=== PATIENT | male | born 1990 ===

== ENCOUNTER 2017-07-17 18:09 | Emergency (ER) | payer SELFPAY ==
--- NOTE | 2017-07-17 19:50 | Emergency Department Record ---
History of Present Illness - General Chief complaint: Jaw Swelling Stated complaint: RT JAW SWELLING/PAIN Time Seen by Provider: 07/17/17 19:48 Source: Patient Mode of Arrival: Ambulatory Limitations: No limitations - History of Present Illness Initial comments: 26 yo male presents to ED with a 2-day history of right lower jaw swelling and dental pain. Patient reports numerous dental caries, reports the tooth resulting in his pain symptoms has been broken for about 1 year. Patient denies recent dental trauma, injury, fevers, chills, or recent illness. Patient reports that he has an appointment with his dentist next week scheduled as well. MD complaint: Tooth pain Onset/Timin -: Days(s) Location: Tooth # Severity: Moderate Severity scale (1-10): 8 Quality: Aching Consistency: Constant Improves with: None Worsens with: None Context- Dental: Poor dental care Associated Symptoms: Gum swelling, Toothache - Related Data Previous Rx's Medication Instructions Recorded Clindamycin HCl [Cleocin HCl] 300 mg PO QID #40 capsule 07/17/17 Ibuprofen [Motrin] 800 mg PO Q6H PRN #30 tab 07/17/17 Prednisone [Prednisone 20Mg] 20 mg PO TID #15 tab 07/17/17 Allergies Allergy/AdvReac Type Severity Reaction Status Date / Time No Known Allergies Allergy Unverified 03/01/17 17:52 Travel Screening - Travel/Exposure Within Last 30 Days Have you traveled within the last 30 days?: No Review of Systems Constitutional: Denies: Chills, Fever, Malaise, Night sweats Eyes: Denies: Eye discharge, Eye pain ENT: Reports: Dental pain. Denies: Congestion, Ear pain, Epistaxis Respiratory: Denies: Cough, Dyspnea Cardiovascular: Denies: Chest pain, Dyspnea on exertion Endocrine: Denies: Fatigue, Heat or cold intolerance Gastrointestinal: Denies: Abdominal pain, Nausea, Vomiting Genitourinary: Denies: Incontinence, Retention Musculoskeletal: Denies: Arthralgia, Back pain, Gout, Joint swelling Skin: Denies: Bruising, Change in color Neurological: Denies: Abnormal gait, Confusion, Headache, Numbness, Tingling Psychiatric: Denies: Anxiety Hematological/Lymphatic: Denies: Anemia, Blood Clots Past Medical History - SOCIAL HISTORY Smoking Status: Current every day smoker Alcohol Use: None Drug Use: None - RESPIRATORY Hx Respiratory Disorders: No - CARDIOVASCULAR Hx Cardio Disorders: No - NEURO Hx Neuro Disorders: No - GI Hx GI Disorders: No - Hx Genitourinary Disorders: No - ENDOCRINE Hx Endocrine Disorders: No - MUSCULOSKELETAL Hx Musculoskeletal Disorders: No - PSYCH Hx Psych Problems: No - HEMATOLOGY/ONCOLOGY Hx Hematology/Oncology Disorders: No Family Medical History Any Significant Family History?: No Physical Exam - General General Appearance: Alert, Oriented x3, Cooperative, Mild distress Limitations: No limitations - Head Head exam: Atraumatic, Other (STS to the right lateral mandible is present) Head exam detail: negative: Abrasion, Contusion, Matthews's sign, General tenderness, Hematoma, Laceration Image of Face/Head: 1 - STS present, no erythema, induration, or abscess present. - Eye Eye exam: Normal appearance. negative: Conjunctival injection, Periorbital swelling, Periorbital tenderness, Scleral icterus - ENT Ear exam: negative: Auricular hematoma, Auricular trauma Nasal Exam: negative: Active bleeding, Discharge, Dried blood, Foreign body Mouth exam: negative: Drooling, Laceration, Muffled voice, Tongue elevation Teeth exam: Dental caries, Dental tenderness #, Fractured tooth # Throat exam: negative: Tonsillar erythema, Tonsillomegaly, R peritonsillar mass , L peritonsillar mass Image of Mouth/Teeth: 1 - Dental tenderness, caries, no gingival abscess is present on examination. - Neck Neck exam: Normal inspection. negative: Meningismus, Tenderness, Thyromegaly - Respiratory Respiratory exam: Normal lung sounds bilaterally. negative: Respiratory distress, Rhonchi, Stridor, Wheezes - Cardiovascular Cardiovascular Exam: Regular rate, Normal rhythm, Normal heart sounds - GI/Abdominal GI/Abdominal exam: Soft. negative: Distended, Rebound, Rigid, Tenderness - Rectal Rectal exam: Deferred - exam: Deferred - Extremities Extremities exam: Normal inspection. negative: Calf tenderness, Pedal edema, Tenderness - Back Back exam: Denies: CVA tenderness (R), CVA tenderness (L) - Neurological Neurological exam: Alert, Normal gait, Oriented X3 - Psychiatric Psychiatric exam: Normal affect, Normal mood - Skin Skin exam: Normal color. negative: Abrasion Type of lesion: negative: abrasion Course Vital Signs 07/17/17 19:29 Temperature 98.5 F Pulse Rate [ 66 Pulse Ox Probe] Respiratory 18 Rate Blood Pressure 150/86 [Left Arm] Pulse Ox 100 - Reevaluation(s) Reevaluation #1: 07/17/17 19:55 Patient's symptoms appear c/w dental caries/dental abscess. Will treat with Clindamycin and Prednisone for his facial swelling symptoms with instructions to return to ED for any worsening of his symptoms, and to follow-up with his dentist as scheduled next Monday. Disposition Disposition: Discharge Clinical Impression: Dental caries Disposition: Home, Self-Care Condition: (2) Stable Instructions: Dental Abscess (ED) Additional Instructions: Return to ED if your symptoms worsen or if you have any concerns. Clindamycin and Prednisone as directed. Follow-up with your dentist in 1 week as scheduled. Prescriptions: Clindamycin HCl [Cleocin HCl] 300 mg PO QID #40 capsule Ibuprofen [Motrin] 800 mg PO Q6H PRN #30 tab PRN Reason: Pain - Moderate (5-7) Prednisone [Prednisone 20Mg] 20 mg PO TID #15 tab Forms: Patient Portal Access Time of Disposition: 19:50 Quality - Quality Measures Quality Measures: N/A - Blood Pressure Screening Does Patient Have Any of the Following: No Blood Pressure Classification: Pre-Hypertensive BP Reading Systolic Measurement: 150 Diastolic Measurement: 86 Screening for High Blood Pressure: < Pre-Hypertensive BP, F/U Documented > [ G8950] Pre-Hypertensive Follow-up Interventions: Referral to alternative/primary care provider.
== END 2017-07-17 20:02 | disposition home or self-care (01) ==
LOC: ER 18:09
DX: K02.9 Dental caries, unspecified (principal)
CPT/HCPCS: 99282

== ENCOUNTER 2018-08-16 20:00 | Emergency (ER) | payer SELFPAY ==
[2018-08-16] MEDS ORDERED: 0.9 % SODIUM CHLORIDE 1,000 ML BAG IV ONE (20:06)
[2018-08-16] MEDS ORDERED: KETOROLAC 30 MG/ML VIAL IVP ONE ×2 (20:06→21:25)
[2018-08-16] MEDS ORDERED: ONDANSETRON HCL IV 4 MG/2 ML VIAL IVP ONE (20:06)
[2018-08-16 20:07] LABS: URINE APPEARANCE SL CLOUDY; URINE BILIRUBIN SMALL (NEGATIVE); URINE BLOOD LARGE (NEGATIVE); URINE COLOR RED; URINE GLUCOSE (UA) NEGATIVE (NEGATIVE); URINE KETONE TRACE (NEGATIVE)
--- NOTE | 2018-08-16 20:10 | Emergency Department Record ---
History of Present Illness - General Chief complaint: Male Urogenital Problem Stated complaint: BLOOD IN URIN AND LOWER BACK PAIN Time Seen by Provider: 08/16/18 20:02 Source: Patient Mode of Arrival: Ambulatory Limitations: No limitations - History of Present Illness Initial comments: 27 yo male presents with left flank pain the last few hours. He has noted some blood tinged urine the last 2 days. No fevers. The pain became intense the last few hours with nausea. No rash. No fevers. No chills. No history of the same in the past. No current medications. No history of renal stones or history. No allergies to medications. MD Complaint: Dysuria, Other (Left flank Pain) -: Hour(s) (2) Location: Left flank Radiation: L flank Severity: Severe Quality: Aching Consistency: Constant Improves with: None Worsens with: None Other Reports: Blood in urine - Related Data Previous Rx's Medication Instructions Recorded Hydrocodone/Acetaminophen [[place] 1 tab PO Q6H PRN #12 tab 08/16/18 5mg/325mg] Allergies Allergy/AdvReac Type Severity Reaction Status Date / Time No Known Drug Allergies Allergy Verified 08/16/18 20:13 Review of Systems Constitutional: Denies: Chills, Fever, Weakness Eyes: Denies: Eye discharge ENT: Denies: Congestion, Throat pain Respiratory: Denies: Cough, Dyspnea Cardiovascular: Denies: Chest pain, Syncope Endocrine: Denies: Fatigue Gastrointestinal: Reports: Abdominal pain (Left flank), Nausea, Vomiting. Denies: Diarrhea Genitourinary: Reports: Hematuria. Denies: Dysuria, Incontinence, Retention, Testicular pain, Testicular mass, Urgency Musculoskeletal: Reports: As per HPI, Back pain. Denies: Arthralgia Skin: Denies: Bruising, Change in color, Rash Neurological: Denies: Headache, Numbness, Weakness Psychiatric: Denies: Anxiety Hematological/Lymphatic: Denies: Blood Clots, Easy bleeding, Easy bruising, Swollen glands Past Medical History - SOCIAL HISTORY Smoking Status: Current every day smoker Drug Use: None - RESPIRATORY Hx Respiratory Disorders: No - CARDIOVASCULAR Hx Cardio Disorders: No - NEURO Hx Neuro Disorders: No - GI Hx GI Disorders: No - Hx Genitourinary Disorders: No - ENDOCRINE Hx Endocrine Disorders: No - MUSCULOSKELETAL Hx Musculoskeletal Disorders: No - PSYCH Hx Psych Problems: No - HEMATOLOGY/ONCOLOGY Hx Hematology/Oncology Disorders: No Physical Exam - General General Appearance: Alert, Oriented x3, Cooperative, No acute distress Limitations: No limitations - Head Head exam: Normal inspection - Eye Eye exam: Normal appearance. negative: Conjunctival injection - ENT ENT exam: Normal exam Ear exam: Normal external inspection Nasal Exam: Normal inspection Mouth exam: Normal external inspection - Neck Neck exam: Normal inspection - Respiratory Respiratory exam: Normal lung sounds bilaterally. negative: Respiratory distress - Cardiovascular Cardiovascular Exam: Regular rate, Normal rhythm, Normal heart sounds - GI/Abdominal GI/Abdominal exam: Soft. negative: Distended, Guarding, Rebound, Rigid, Tenderness - Rectal Rectal exam: Deferred - exam: Deferred - Extremities Extremities exam: Normal inspection - Back Back exam: Reports: CVA tenderness (L), Full ROM. Denies: CVA tenderness (R), Muscle spasm, Paraspinal tenderness, Vertebral tenderness - Neurological Neurological exam: Alert, Oriented X3 - Psychiatric Psychiatric exam: Normal affect, Normal mood - Skin Skin exam: Dry, Intact, Normal color, Warm Course - Reevaluation(s) Reevaluation #1: 08/16/18 20:28 UA reviewed. No acute sing of infection. 08/16/18 20:38 No acute changes on the CMP 08/16/18 20:42 The pain control is much improved at this time. Waiting for CT report. 08/16/18 21:03 CBC reviewed. No acute changes. 08/16/18 21:[address] demonstrated 2.5mm distal left renal stone. We discussed the labs, CT, reasons to return, home care with pain medication, strainer. 08/16/18 21:31 Opioid Start Talking: MAPS completed The patient was prescribed a controlled substance. The Opioid Start Talking Form was reviewed with the patient. The topics of abuse, addiction, overdose, multiple medications, disposal, and illegal distribution 08/16/18 21:57 Some pain returning at this time. Morphine and Toradol given. Will continue to monitor. 08/16/18 22:21 The pain is controlled. We discussed that it will come and go some. He is ready for DC Medical Decision Making - Lab Data Result diagrams: 08/16/18 20:17 08/16/18 20:17 Disposition Disposition: Discharge Clinical Impression: Renal colic on left side Disposition: Home, Self-Care Condition: (1) Good Instructions: Renal Colic (ED) Additional Instructions: Call your doctor for the next available follow up appointment Return to the ER for a recheck if worse, any new concerns or questions, uncontrolled pain, vomiting or fever Take the prescriptions provided as directed Review this ER visit and the tests performed with your family doctor Prescriptions: Hydrocodone/Acetaminophen [[place] 5mg/325mg] 1 tab PO Q6H PRN #12 tab PRN Reason: Pain - General Referrals: SANJUANA MIRANDA [MEDICAL DOCTOR] - Forms: Patient Portal Access Time of Disposition: 21:31 Quality - Quality Measures Quality Measures: N/A - Blood Pressure Screening Does Patient Have Any of the Following: No Blood Pressure Classification: Pre-Hypertensive BP Reading Systolic Measurement: 139 Diastolic Measurement: 85 Screening for High Blood Pressure: < Pre-Hypertensive BP, F/U Documented > [ G8950] Pre-Hypertensive Follow-up Interventions: Referral to alternative/primary care provider.
[2018-08-16 20:11] LABS: URINE EPITHELIAL CELLS 0 - 2 (FEW); URINE WBC 0 - 2 (0-2/hpf)
[2018-08-16] MEDS ORDERED: MORPHINE SULFATE 10 MG/ML VIAL IVP ONE (20:11)
[2018-08-16 20:12] LABS: URINE BACTERIA NONE SEEN
[2018-08-16 20:29] LABS: BLOOD UREA NITROGEN 10 mg/dL (6-20); CREATININE 1.2 mg/dL (0.7-1.2); EST GLOMERULAR FILTRATION RATE > 60 mL/min
[2018-08-16 20:30] LABS: TOTAL PROTEIN 6.7 g/dL (6.6-8.7)
[2018-08-16 20:30] LABS: URINE NITRITE POSITIVE (NEGATIVE)
[2018-08-16 20:31] LABS: URINE LEUKOCYTE ESTERASE TRACE (NEGATIVE)
[2018-08-16 20:32] LABS: GLUCOSE,RANDOM 90 mg/dL (74-109)
[2018-08-16 20:35] LABS: ALB/GLOB RATIO 1.9 (1.1-1.8); ALBUMIN 4.4 g/dL (4.0-5.0); ALKALINE PHOSPHATASE 65 U/L (40-129); ALT/SGPT 10 U/L (<41); AST/SGOT 17 U/L (10.0-50.0)
[2018-08-16 21:01] LABS: HEMOGLOBIN 16.1 gm/dl (14.0-18.0); RED BLOOD COUNT 5.54 M/uL (4.40-5.70); WHITE BLOOD COUNT W/O DIFF 13.4 K/uL (4.2-12.2)
[2018-08-16 21:02] LABS: EOS % 1.8 % (0-6); GRAN % 50.1 % (47-80); HEMATOCRIT 48.3 % (42.0-52.0); LYMPH % 40.9 % (16-45); MEAN CELL VOLUME 87.2 fl (81-97); MEAN CORPUSCULAR HEMOGLOBIN 29.1 pg (27-33); MEAN CORPUSCULAR HGB CONC 33.3 g/dl (32-36); MEAN PLATELET VOLUME 9.4 fl (7.4-10.4); MONO % 6.2 % (0-9); PLATELET COUNT 348 K/uL (130-400); RED CELL DISTRIBUTION WIDTH 14.6 % (11.5-14.5)
[2018-08-16] MEDS ORDERED: TAMSULOSIN HCL 0.4 MG CAP.ER.24H PO ONE (21:04)
[2018-08-16] MEDS ORDERED: ONDANSETRON 4 MG ODT TABLET SL ONE (21:27)
[2018-08-16] MEDS ORDERED: HYDROCODONE/APAP 5/325MG TABLET PO ONE (21:27)
--- NOTE | 2018-08-18 13:53 | CT SCAN REPORT ---
DATE: 08/16/2018. EXAM: CT SCAN OF THE ABDOMEN AND PELVIS. HISTORY: THE PATIENT HAS LEFT LOWER BACK PAIN. TECHNIQUE: Serial axial CT scan of the abdomen and pelvis was performed at 2.5- mm intervals from the dome of the diaphragm down to the pubic symphysis without the use of intravenous or oral contrast. COMPARISON: No comparison CTs are available. FINDINGS: The lung windows and lung bases demonstrate no CT evidence of a focal infiltrate or pleural effusion. The visualized heart size and contour is within normal limits. The liver, spleen, pancreas, adrenal glands, and gallbladder are unremarkable. Mild left-sided hydroureter is noted. There is mild left-sided hydronephrosis with mild left perinephric fat stranding. There is a partially obstructing 2.5 mm calculus within the distal left ureter. The right kidney is unremarkable. The contour and caliber of the noncontrasted abdominal aorta is within normal limits. There is no CT evidence of retroperitoneal, pelvic, or inguinal lymphadenopathy. The bowel gas pattern is nonspecific and nonobstructive. There is no CT evidence of free intraperitoneal fluid or free intraperitoneal air. The appendix is visualized, and there is no CT evidence of appendicitis. The urinary bladder is decompressed. The bone windows demonstrate no CT evidence of a fracture or dislocation of the visualized osseous structures. IMPRESSION: A 2.5 MM, PARTIALLY OBSTRUCTING CALCULUS IS NOTED IN THE DISTAL LEFT URETER CREATING MILD LEFT-SIDED HYDRONEPHROSIS AND HYDROURETER. JOB NUMBER: [id number] MTDD
== END 2018-08-16 22:29 | disposition home or self-care (01) ==
LOC: ER 20:00
DX: N20.0 Calculus of kidney (principal); R30.0 Dysuria; R31.0 Gross hematuria; R11.0 Nausea; F17.210 Nicotine dependence, cigarettes, uncomplicated
CPT/HCPCS: 99284 ×2; 96374; 96375; 85025; 80053; 81001; 74176; J1885; J2405; J2270; J7030

== ENCOUNTER 2018-08-19 10:36 | Emergency (ER) | payer SELFPAY ==
[2018-08-19] MEDS ORDERED: KETOROLAC 30 MG/ML VIAL IVP ONE (10:47)
[2018-08-19] MEDS ORDERED: 0.9 % SODIUM CHLORIDE 1,000 ML BAG IV ONE ×2 (10:47→11:24)
[2018-08-19] MEDS ORDERED: ONDANSETRON HCL IV 4 MG/2 ML VIAL IVP ONE (10:47)
--- NOTE | 2018-08-19 10:50 | Emergency Department Record ---
History of Present Illness - General Chief complaint: Flank Pain Stated complaint: KIDNEY STONE Time Seen by Provider: 08/19/18 10:37 Source: Patient Mode of Arrival: Ambulatory Limitations: No limitations - History of Present Illness Initial comments: The patient was diagnosed with a L lower ureter stone 3 days ago in the ER. It measured 2.5 mm and was quite distal in the ureter. He has been taking his pain medicines but this AM the pain worsened and he developed vomiting. There has been no fever, chills, or back pain. MD Complaint: Other Onset/Timin -: Days(s) Location: Left flank Severity scale (1-10): >10 Quality: Sharp, Stabbing Consistency: Constant - Related Data Previous Rx's Medication Instructions Recorded Hydrocodone/Acetaminophen [[place] 1 tab PO Q6H PRN #12 tab 08/16/18 5mg/325mg] Hydrocodone/Acetaminophen [[place] 1 - 2 each PO QID #12 tablet 08/19/18 5-325 Tablet] Ondansetron [Zofran Odt] 4 mg SL .Q4-6H PRN #12 tab.rapdis 08/19/18 Tamsulosin HCl [Flomax] 0.4 mg PO DAILY #7 cap.er.24h 08/19/18 Allergies Allergy/AdvReac Type Severity Reaction Status Date / Time No Known Drug Allergies Allergy Verified 08/16/18 20:13 Travel Screening - Travel/Exposure Within Last 30 Days Have you traveled within the last 30 days?: No - Travel/Exposure Within Last Year Have you traveled outside the [place] in the last year?: No - Additonal Travel Details Have you been exposed to anyone with a communicable illness?: No - Travel Symptoms Symptom Screening: None Review of Systems Constitutional: Denies: Chills, Fever Eyes: Denies: Eye discharge ENT: Denies: Congestion Respiratory: Denies: Cough, Dyspnea Past Medical History - SOCIAL HISTORY Smoking Status: Current every day smoker Alcohol Use: None Drug Use: Occasional Drug Use Detail:: Marijuana - RESPIRATORY Hx Respiratory Disorders: No - CARDIOVASCULAR Hx Cardio Disorders: No - NEURO Hx Neuro Disorders: No - GI Hx GI Disorders: No - Hx Genitourinary Disorders: Yes Hx Kidney Stones: Yes - ENDOCRINE Hx Endocrine Disorders: No - MUSCULOSKELETAL Hx Musculoskeletal Disorders: No - PSYCH Hx Psych Problems: No - HEMATOLOGY/ONCOLOGY Hx Hematology/Oncology Disorders: No Family Medical History Any Significant Family History?: No Hx Cancer: Grandparents Hx Diabetes: Father Physical Exam - General General Appearance: Alert, Oriented x3, Cooperative, Mild distress (due to AP.) - Head Head exam: Atraumatic, Normocephalic, Normal inspection - Eye Eye exam: Normal appearance, PERRL - Neck Neck exam: Normal inspection, Full ROM. negative: Tenderness - Respiratory Respiratory exam: Normal lung sounds bilaterally. negative: Respiratory distress - Cardiovascular Cardiovascular Exam: Regular rate, Normal rhythm, Normal heart sounds - GI/Abdominal GI/Abdominal exam: Soft, Normal bowel sounds, Tenderness (There is mild LLQ tenderness to palpation). negative: Rebound, Rigid - Extremities Extremities exam: Normal inspection, Full ROM, Normal capillary refill. negative: Tenderness Course Vital Signs 08/19/18 10:38 Temperature 98.2 F Pulse Rate 65 Respiratory 20 Rate Blood Pressure 132/84 Pulse Ox 99 - Reevaluation(s) Reevaluation #1: The patient is doing better at this time. His pain is much improved and he is resting comfortably. 08/19/18 11:52 Reevaluation #2: The patient is doing much better at this time. He was sleeping when I walked into the room. The pain is much improved. I did discus the case with Dr. Mark and he should be able to see the patient in the office tomorrow. If he worsens prior to that he would like the patient to go to [facility] for further treatment. 08/19/18 12:21 Reevaluation #3: The patient is doing a lot better now. His pain is well controlled and he is drinking and urinating normally with no nausea or vomiting. I did explain the plan to him again. He is to see Dr. Mark tomorrow in the office. If he is unable to see him tomorrow he should return here to the ER for recheck and repeat lab work. If his symptoms worsen today he is to proceed to [facility] for definite treatment. 08/19/18 13:34 Medical Decision Making - Data Complexity MDM Data: Labs Ordered and/or Reviewed, X-Ray Ordered and/or Reviewed (CT from 08/16 reviewed.) - Lab Data Result diagrams: 08/19/18 10:50 08/19/18 12:44 Disposition Disposition: Discharge Clinical Impression: Renal colic on left side Disposition: Home, Self-Care Condition: (2) Stable Instructions: Flank Pain (ED) Additional Instructions: Please drink plenty of fluids and use the [place], Flomax and Zofran as directed. Please see Dr. Mark tomorrow and call for an appointment. Please proceed to [facility] for any worsening symptoms today like worsening pain, fever, or vomiting. Prescriptions: Hydrocodone/Acetaminophen [[place] 5-325 Tablet] 1 - 2 each PO QID #12 tablet Ondansetron [Zofran Odt] 4 mg SL .Q4-6H PRN #12 tab.rapdis PRN Reason: Nausea Tamsulosin HCl [Flomax] 0.4 mg PO DAILY #7 cap.er.24h Referrals: REFUGIO MARK M.D. [MEDICAL DOCTOR] - Forms: Patient Portal Access Time of Disposition: 13:37 Quality - Quality Measures Quality Measures: N/A - Blood Pressure Screening View Details: Yes Does Patient Have Any of the Following: No Blood Pressure Classification: Pre-Hypertensive BP Reading Systolic Measurement: 121 Diastolic Measurement: 60 Screening for High Blood Pressure: < Pre-Hypertensive BP, F/U Documented > [ G8950] Pre-Hypertensive Follow-up Interventions: Referral to alternative/primary care provider.
[2018-08-19 11:02] LABS: BASO % 0.4 % (0-6); EOS % 0.6 % (0-6); GRAN % 76.2 % (47-80); HEMATOCRIT 42.5 % (42.0-52.0); HEMOGLOBIN 14.1 gm/dl (14.0-18.0); LYMPH % 12.9 % (16-45); MEAN CELL VOLUME 86.9 fl (81-97); MEAN CORPUSCULAR HEMOGLOBIN 28.8 pg (27-33); MEAN CORPUSCULAR HGB CONC 33.2 g/dl (32-36); MEAN PLATELET VOLUME 9.8 fl (7.4-10.4); MONO % 9.9 % (0-9); PLATELET COUNT 283 K/uL (130-400); RED BLOOD COUNT 4.89 M/uL (4.40-5.70); RED CELL DISTRIBUTION WIDTH 14.4 % (11.5-14.5); WHITE BLOOD COUNT W/O DIFF 19.1 K/uL (4.2-12.2)
[2018-08-19 11:12] LABS: CREATININE 1.6 mg/dL (0.7-1.2)
[2018-08-19] MEDS ORDERED: HYDROMORPHONE HCL 2 MG/ML VIAL IVP ONE ×2 (11:24→13:16)
[2018-08-19 11:33] LABS: URINE APPEARANCE CLEAR; URINE BILIRUBIN NEGATIVE (NEGATIVE); URINE BLOOD SMALL (NEGATIVE); URINE COLOR YELLOW; URINE GLUCOSE (UA) NEGATIVE (NEGATIVE); URINE KETONE 40 mg/dL (NEGATIVE); URINE LEUKOCYTE ESTERASE NEGATIVE (NEGATIVE); URINE NITRITE NEGATIVE (NEGATIVE); URINE PROTEIN NEGATIVE (NEGATIVE); URINE UROBILINOGEN 0.2 E.U./dL (0.20 - 1.00)
[2018-08-19 11:44] LABS: URINE BACTERIA FEW; URINE EPITHELIAL CELLS 0 - 2 (FEW); URINE WBC 0 - 2 (0-2/hpf)
[2018-08-19 12:59] LABS: CREATININE 1.6 mg/dL (0.7-1.2)
== END 2018-08-19 13:51 | disposition home or self-care (01) ==
LOC: ER 10:36
DX: N20.1 Calculus of ureter (principal); R11.10 Vomiting, unspecified; F17.210 Nicotine dependence, cigarettes, uncomplicated; Z87.442 Personal history of urinary calculi
CPT/HCPCS: 80048; 81001; 82565; 85025; 96361; 96374; 96375; 96376; 99284; J1885; J2405; J7030

== ENCOUNTER 2018-11-06 14:02 | Emergency (ER) | payer SELFPAY ==
[2018-11-06 14:33] LABS: INFLUENZA A POSITIVE (NEGATIVE); INFLUENZA B NEGATIVE (NEGATIVE)
[2018-11-06] MEDS ORDERED: ONDANSETRON 4 MG ODT TABLET SL ONE (14:43)
--- NOTE | 2018-11-06 14:58 | Emergency Department Record ---
History of Present Illness - General Chief complaint: Flu Like Symptoms Stated complaint: headache,vomiting,fever Time Seen by Provider: 11/06/18 14:18 Source: Patient Mode of Arrival: Ambulatory Limitations: No limitations - History of Present Illness Initial comments: pt has fever, sweats, chills, cough for 36hrs. his son was recently dxd w flu. he also has n/v Onset/Timin -: Days(s) Location: Generalized Severity: Moderate Severity scale (1-10): 6 Quality: Aching Consistency: Constant Improves with: None Worsens with: None Associated Symptoms: Denies other symptoms - Gabriel Coma Scale Eye Response: (4) Open spontaneously Motor Response: (6) Obeys commands Verbal Response: (5) Oriented [place] Total: 15 - Related Data Previous Rx's Medication Instructions Recorded Oseltamivir Phosphate [Tamiflu] 75 mg PO BID #10 capsule 11/06/18 Allergies Allergy/AdvReac Type Severity Reaction Status Date / Time No Known Drug Allergies Allergy Verified 08/16/18 20:13 Travel Screening - Travel/Exposure Within Last 30 Days Have you traveled within the last 30 days?: No Review of Systems Reviewed: No additional complaints except as noted below Constitutional: Reports: As per HPI, Chills, Fever. Denies: Malaise, Night sweats, Weakness, Weight change Eyes: Reports: As per HPI. Denies: Eye discharge, Eye pain, Photophobia, Vision change ENT: Reports: As per HPI. Denies: Congestion, Dental pain, Ear pain, Epistaxis , Hearing loss, Throat pain Respiratory: Reports: As per HPI, Cough. Denies: Dyspnea, Hemoptysis, Stridor, Wheezes Cardiovascular: Reports: As per HPI. Denies: Arrhythmia, Chest pain, Dyspnea on exertion, Edema, Murmurs, Orthopnea, Palpitations, Paroxysmal nocturnal dyspnea, Rheumatic Fever, Syncope Endocrine: Reports: As per HPI. Denies: Fatigue, Heat or cold intolerance, Polydipsia, Polyuria Gastrointestinal: Reports: As per HPI, Nausea, Vomiting. Denies: Abdominal pain , Constipation, Diarrhea, Hematemesis, Hematochezia, Melena Genitourinary: Reports: As per HPI. Denies: Dysuria, Frequency, Hematuria, Incontinence, Retention, Testicular pain, Testicular mass, Urgency Musculoskeletal: Reports: As per HPI. Denies: Arthralgia, Back pain, Gout, Joint swelling, Myalgia, Neck pain Skin: Reports: As per HPI. Denies: Bruising, Change in color, Change in hair/ nails, Lesions, Pruritus, Rash Neurological: Reports: As per HPI. Denies: Abnormal gait, Confusion, Headache, Numbness, Paresthesias, Seizure, Tingling, Tremors, Vertigo, Weakness Psychiatric: Reports: As per HPI. Denies: Anxiety, Auditory hallucinations, Depression, Homicidal thoughts, Suicidal thoughts, Visual hallucinations Hematological/Lymphatic: Reports: As per HPI. Denies: Anemia, Blood Clots, Easy bleeding, Easy bruising, Swollen glands Past Medical History - SOCIAL HISTORY Smoking Status: Current every day smoker Alcohol Use: None Drug Use: None - RESPIRATORY Hx Respiratory Disorders: No - CARDIOVASCULAR Hx Cardio Disorders: No - NEURO Hx Neuro Disorders: No - GI Hx GI Disorders: No - Hx Genitourinary Disorders: Yes Hx Kidney Stones: Yes - ENDOCRINE Hx Endocrine Disorders: No - MUSCULOSKELETAL Hx Musculoskeletal Disorders: No - PSYCH Hx Psych Problems: No - HEMATOLOGY/ONCOLOGY Hx Hematology/Oncology Disorders: No Family Medical History Any Significant Family History?: Yes Hx Cancer: Grandparents Hx Diabetes: Father Physical Exam - General General Appearance: Alert, Oriented x3, Cooperative, Mild distress - Head Head exam: Normal inspection - Eye Eye exam: Normal appearance, PERRL, EOMI Pupils: Normal accommodation - ENT ENT exam: Normal exam, Mucous membranes moist, Normal external ear exam, Normal orophraynx Ear exam: Normal external inspection. negative: External canal tenderness Nasal Exam: Normal inspection. negative: Discharge, Sinus tenderness Mouth exam: Normal external inspection, Tongue normal Teeth exam: Normal inspection. negative: Dental caries Throat exam: Normal inspection. negative: Tonsillar erythema, Tonsillar exudate - Neck Neck exam: Normal inspection, Full ROM. negative: Tenderness - Respiratory Respiratory exam: Normal lung sounds bilaterally. negative: Respiratory distress - Cardiovascular Cardiovascular Exam: Regular rate, Normal rhythm, Normal heart sounds - GI/Abdominal GI/Abdominal exam: Soft, Normal bowel sounds. negative: Tenderness - Rectal Rectal exam: Deferred - exam: Deferred - Extremities Extremities exam: Normal inspection, Full ROM, Normal capillary refill. negative: Tenderness - Back Back exam: Reports: Normal inspection, Full ROM. Denies: Muscle spasm, Rash noted, Tenderness - Neurological Neurological exam: Alert, CN II-XII intact, Normal gait, Oriented X3 - Psychiatric Psychiatric exam: Normal affect, Normal mood - Skin Skin exam: Dry, Intact, Normal color, Warm Course Vital Signs 11/06/18 14:13 Temperature 98.2 F Pulse Rate 95 H Respiratory 18 Rate Blood Pressure 117/78 Pulse Ox 97 Medical Decision Making - Lab Data Lab Results 11/06/18 Range/Units 14:18 Influenza Type A Ag Positive H (NEGATIVE) Influenza Type B Ag Negative (NEGATIVE) Disposition Disposition: Discharge Clinical Impression: Influenza A Disposition: Home, Self-Care Condition: (1) Good Instructions: Influenza (ED) Additional Instructions: follow up with family doctor. return sooner if worse. motrin and tylenol as needed Prescriptions: Oseltamivir Phosphate [Tamiflu] 75 mg PO BID #10 capsule Forms: Patient Portal Access, Return to Work/School Quality - Quality Measures Quality Measures: N/A - Blood Pressure Screening Does Patient Have Any of the Following: No Blood Pressure Classification: Normal BP Reading Systolic Measurement: 117 Diastolic Measurement: 78 Screening for High Blood Pressure: < Normal BP, F/U Not Required > [G8783]
--- NOTE | 2018-11-08 08:30 | RADIOLOGY REPORT ---
EXAM: CHEST, TWO VIEWS HISTORY: DIFFICULTY IN BREATHING. TECHNIQUE: Frontal and lateral views of the chest were performed. FINDINGS: The heart size is normal. The lung rene are clear. The osseous structures are normal. IMPRESSION: NEGATIVE CHEST EXAMINATION. JOB NUMBER: [id number] MTDD
== END 2018-11-06 15:10 | disposition home or self-care (01) ==
LOC: ER 14:02
DX: J10.1 Influenza due to other identified influenza virus with other respiratory manifestations (principal); R50.81 Fever presenting with conditions classified elsewhere; R11.2 Nausea with vomiting, unspecified; F17.210 Nicotine dependence, cigarettes, uncomplicated
CPT/HCPCS: 71046; 87400; 99283

== ENCOUNTER 2019-06-11 12:05 | Emergency (ER) | payer MEDICAID ==
--- NOTE | 2019-06-11 12:19 | Emergency Department Record ---
History of Present Illness - General Chief Complaint: Chest Pain Stated Complaint: CHEST PAIN Time Seen by Provider: 06/11/19 12:15 Source: Patient Mode of Arrival: Ambulatory Limitations: No limitations - History of Present Illness Initial Comments: 28 yo male presents from the [facility]. He has had two days of cough with some productive sputum - yellow. No fevers. He is a smoker. No chills. He has noticed that it hurts to cough or take deep breaths. Today at work he began to breath fast and felt lightheaded, hands tingled and it continued to hurt to breath. He went to the to be seen and was sent to the ED. No blood in the sputum. No cardiac disease history. No pulmonary history. MD Complaint: Chest pain Onset/Timin -: Days(s) (2) Onset: Other (At work) Pain Location: Left chest Severity: Moderate Quality: Other Consistency: Intermittent Improves With: Nothing Worsens With: Nothing Anginal Symptoms: Dyspnea, Other (tingling) Other Symptoms: Cough Treatments Prior to Arrival: None - Related Data Previous Rx's Medication Instructions Recorded Azithromycin [Zithromax] 250 mg PO DAILY #6 tablet 06/11/19 Prednisone [Prednisone 20Mg] 20 mg PO BID #10 tab 06/11/19 Allergies Allergy/AdvReac Type Severity Reaction Status Date / Time No Known Drug Allergies Allergy Verified 06/11/19 12:16 Travel Screening - Travel/Exposure Within Last 30 Days Have you traveled within the last 30 days?: No Review of Systems Constitutional: Denies: Chills, Fever, Malaise, Weakness Eyes: Denies: Eye discharge ENT: Denies: Congestion, Ear pain, Epistaxis, Throat pain Respiratory: Reports: Cough, Dyspnea, Wheezes. Denies: Hemoptysis, Stridor Cardiovascular: Reports: As per HPI, Chest pain, Dyspnea on exertion. Denies: Edema, Palpitations, Syncope Endocrine: Denies: Fatigue, Polydipsia, Polyuria Gastrointestinal: Denies: Abdominal pain, Diarrhea, Nausea, Vomiting Genitourinary: Denies: Dysuria, Frequency, Hematuria Musculoskeletal: Denies: Arthralgia, Back pain, Myalgia Skin: Denies: Bruising, Change in color, Rash Neurological: Denies: Confusion, Headache Psychiatric: Denies: Anxiety Hematological/Lymphatic: Denies: Easy bleeding, Easy bruising Past Medical History - SOCIAL HISTORY Smoking Status: Current every day smoker Drug Use: None - RESPIRATORY Hx Respiratory Disorders: No - CARDIOVASCULAR Hx Cardio Disorders: No - NEURO Hx Neuro Disorders: No - GI Hx GI Disorders: No - Hx Genitourinary Disorders: Yes Hx Kidney Stones: Yes - ENDOCRINE Hx Endocrine Disorders: No - MUSCULOSKELETAL Hx Musculoskeletal Disorders: No - PSYCH Hx Psych Problems: No - HEMATOLOGY/ONCOLOGY Hx Hematology/Oncology Disorders: No Family Medical History Hx Cancer: Grandparents Hx Diabetes: Father Physical Exam - General General Appearance: Alert, Oriented x3, Cooperative, No acute distress Limitations: No limitations - Head Head exam: Atraumatic, Normal inspection - Eye Eye exam: Normal appearance, PERRL. negative: Conjunctival injection, Scleral icterus - ENT ENT exam: Normal exam, Mucous membranes moist, Normal orophraynx Ear exam: Normal external inspection Nasal Exam: Normal inspection Mouth exam: Normal external inspection - Neck Neck exam: Normal inspection - Respiratory Respiratory exam: Prolonged expiratory, Rhonchi, Wheezes. negative: Normal lung sounds bilaterally, Accessory muscle use, Chest wall tenderness, Decreased breath sounds, Respiratory distress - Cardiovascular Cardiovascular Exam: Regular rate, Normal rhythm, Normal heart sounds Peripheral Pulses: 2+: Radial (R), Radial (L) - GI/Abdominal GI/Abdominal exam: Soft. negative: Tenderness - Rectal Rectal exam: Deferred - exam: Deferred - Extremities Extremities exam: negative: Calf tenderness, Pedal edema - Back Back exam: Denies: CVA tenderness (R), CVA tenderness (L) - Neurological Neurological exam: Alert, Oriented X3 - Psychiatric Psychiatric exam: Anxious, Normal affect, Normal mood. negative: Agitated - Skin Skin exam: Dry, Intact, Normal color, Warm Course Vital Signs 06/11/19 12:07 Temperature 98.4 F Pulse Rate 64 Respiratory 24 Rate Blood Pressure 118/70 Pulse Ox 99 - Reevaluation(s) Reevaluation #1: EKG #1: 12:06 Rate: 62 Rhythm: sinus [place]: normal Intervals: normal ST segments: normal Prior: none 06/11/19 12:15 06/11/19 12:42 Vitals reviewed No acute changes 06/11/19 13:00 The labs were reviewed No acute changes. 06/11/19 13:41 The CXR is negative for acute process The pain is with breathing and cough No premature risk factors for CAD Medical Decision Making - Lab Data Result diagrams: 06/11/19 12:15 06/11/19 12:15 Disposition Disposition: Discharge Clinical Impression: Pleuritic chest pain, Bronchitis Disposition: Home, Self-Care Condition: (1) Good Instructions: Pleurisy (ED), Acute Bronchitis (ED) Additional Instructions: Call your doctor for the next available follow up appointment Review this ER visit and the tests performed with your family doctor Return to the ER for a recheck if worse, any new concerns or questions Take the prescriptions provided as directed Prescriptions: Prednisone [Prednisone 20Mg] 20 mg PO BID #10 tab Azithromycin [Zithromax] 250 mg PO DAILY #6 tablet Forms: Patient Portal Access Time of Disposition: 13:02 Quality - Quality Measures Quality Measures: N/A - Blood Pressure Screening Does Patient Have Any of the Following: No Blood Pressure Classification: Normal BP Reading Systolic Measurement: 118 Diastolic Measurement: 70 Screening for High Blood Pressure: < Normal BP, F/U Not Required > [G8783]
[2019-06-11] MEDS ORDERED: IPRATROPIUM/ALBUTEROL (0.5MG/3MG) NEB INH ONE (12:35)
[2019-06-11] MEDS ORDERED: KETOROLAC 30 MG/ML VIAL IVP ONE (12:36)
[2019-06-11 12:44] LABS: ABSOLUTE NEUTROPHIL COUNT 6.34; EOS % 1.8 % (0-6); GRAN % 51.5 % (47-80); HEMATOCRIT 45.1 % (42.0-52.0); LYMPH % 38.1 % (16-45); MEAN CELL VOLUME 86.7 fl (81-97); MEAN CORPUSCULAR HEMOGLOBIN 28.8 pg (27-33); MEAN CORPUSCULAR HGB CONC 33.3 g/dl (32-36); MEAN PLATELET VOLUME 10.1 fl (7.4-10.4); MONO % 7.6 % (0-9); PLATELET COUNT 345 K/uL (130-400); RED CELL DISTRIBUTION WIDTH 14.1 % (11.5-14.5); WHITE BLOOD COUNT W/O DIFF 12.3 K/uL (4.2-12.2)
[2019-06-11 12:54] LABS: BLOOD UREA NITROGEN 10 mg/dL (6-20); CREATININE 0.9 mg/dL (0.7-1.2); EST GLOMERULAR FILTRATION RATE > 60 mL/min
[2019-06-11 12:57] LABS: GLUCOSE,RANDOM 100 mg/dL (74-109)
--- NOTE | 2019-06-12 07:58 | RADIOLOGY REPORT ---
EXAM: CHEST, TWO VIEWS HISTORY: LEFT SIDED CHEST PAIN WORSE WITH DEEP BREATH, LIGHTHEADEDNESS, SHORTNESS OF BREATH SINCE THIS MORNING. TECHNIQUE: Two views of the chest were obtained. Comparison: No prior exams available for comparison. FINDINGS: The cardiomediastinal silhouette appears within normal limits. No focal consolidation, pneumothorax or pleural effusions identified. The osseous structures appear intact, no acute displaced fracture or dislocation. The vertebral body heights appear preserved. No obvious pneumoperitoneum. IMPRESSION: NO ACUTE CARDIOPULMONARY PROCESS IDENTIFIED. NO CONSOLIDATION OR PNEUMOTHORAX. JOB NUMBER: [id number] MTDD
== END 2019-06-11 13:55 | disposition home or self-care (01) ==
LOC: ER 12:05
DX: R07.81 Pleurodynia (principal); J20.9 Acute bronchitis, unspecified; R06.00 Dyspnea, unspecified; R42 Dizziness and giddiness; R20.0 Anesthesia of skin; F17.210 Nicotine dependence, cigarettes, uncomplicated
CPT/HCPCS: 71046; 80048; 85025; 85379; 93005; 93010; 94640; 96374; 99284; J1885